=== PATIENT | female | born 1950 | race Caucasian/White ===

== ENCOUNTER 2017-06-05 21:18 | Observation (INO) | payer MEDICARE, BC ==
[2017-06-05 21:43] LABS: BASOPHILS 0.4 % (0.0-2.0); EOSINOPHILS 1.3 % (0.0-6.0); EOSINOPHILS# 0.1 X 10^3uL (0.0-0.4); HEMATOCRIT 45.6 % (36.0-48.0); HEMOGLOBIN 15.7 g/dL (12.0-16.0); LYMPHOCYTES 27.2 % (20.0-40.0); LYMPHOCYTES# 1.8 X 10^3uL (0.8-3.8); MEAN CELL VOLUME 94.4 fL (80.0-100.0); MEAN CORPUS. HGB CONCENTRATION 34.4 g/dL (32.0-36.0); MEAN CORPUSCULAR HEMOGLOBIN 32.5 pg (29.0-35.0); MEAN PLATELET VOLUME 8.1 fL (7.4-10.4); MONOCYTES 10.8 % (2.0-10.0); MONOCYTES# 0.7 X 10^3uL (0.2-1.0); NEUTROPHILS 60.3 % (54.0-75.0); NEUTROPHILS# 3.9 X 10^3uL (2.6-6.7); PLATELET COUNT 207 X 10^3uL (130-440); RED BLOOD COUNT 4.83 X 10^6uL (4.20-6.10); RED CELL DISTRIBUTION WIDTH 12.5 % (11.5-14.5); WHITE BLOOD COUNT 6.5 X 10^3uL (3.9-10.7)
[2017-06-05 21:53] LABS: BLOOD UREA NITROGEN 21 mg/dL (7-17); CALCIUM 9.1 mg/dL (8.4-10.2); CHLORIDE 108 mmol/L (98-107); EST GLOMERULAR FILTRATION RATE > 60 mL/min; GLUCOSE 104 mg/dL (70-100); POTASSIUM 3.2 mmol/L (3.5-5.1); SODIUM 142 mmol/L (137-145)
[2017-06-05 22:08] LABS: TROPONIN I < 0.012 ng/mL (0.00-0.034)
[2017-06-05] MEDS ORDERED: KETOROLAC TROMETHAMINE 30 MG/ML VIAL ONE (22:10)
[2017-06-05 22:21] LABS: INR 0.9
--- NOTE | 2017-06-05 23:19 | CT REPORT ---
HISTORY: Shortness of breath. Difficulty breathing. COMPARISON: None. TECHNIQUE: This examination was performed using automated exposure control, adjustment of mA or kV according to patient size, and/or use of iterative reconstruction technique. Axial CT imaging from the thoracic i nlet through the upper abdomen following administration of IV contrast during peak opacification of t he pulmonary arteries, multiplanar reformatted and 3-D images are evaluated. 100cc Isovue 300 contrast. FINDINGS: Segmental pulmonary emboli are present in the right lower lobe and there is a small amount of embolus in the right upper lobe. Central pulmonary arteries are not enlarged and there is no deviation of th e interventricular septum. The heart size is normal and there is no pericardial effusion. The thoraci c aorta shows no dissection. There are no enlarged thoracic lymph nodes. Minimal scarring involves the lung apices. In the right lower lobe (series 6, image 45), there is a 4 mm noncalcified nodule. In the right lower lobe (image 62), there is a 3 mm nodule. In the far infer ior right lower lobe (image 73), there is a 5 mm nodule. There is a 2 mm left upper lobe nodule (imag e 24). There is a 2 mm nodule more inferiorly in the left upper lobe which 38). A 3 mm subpleural nod ule involves the left lower lobe (image 40). A triangular-shaped nodule in the left lower lobe (image 53) measures 5 mm. A posterior left lower lobe nodule (image 55) measures 4 mm. Other small subpleur al nodular densities are present more inferiorly in the left lower lobe. There is no airspace infiltrate, consolidation, or pleural effusion. Imaged portions of the upper abd omen are unremarkable. No suspicious bony lesions or fractures are demonstrated. Subcentimeter left t hyroid nodules are noted. IMPRESSION: 1. Acute pulmonary embolism involving multiple segments in the right lower lobe and with a small amou nt of thrombus in the right upper lobe. No acute pulmonary artery enlargement and no pulmonary infarc tion. 2. Small bilateral pulmonary nodules. Based on updated Fleischner Society guidelines, no further imag ing follow-up is required in a patient at low risk for lung cancer. If the patient has significantly elevated risk, follow-up chest CT in one year could be performed. 3. Subcentimeter left thyroid nodules. These do not warrant further evaluation, based on size criteri a. Critical finding of acute pulmonary embolism was personally communicated to Dr. Crispin Barrera on 06/05/20 17 at 11:10 PM. Final Electronic Signature: This report was electronically signed by Mitchell Riley MD on 06/05/2017 11:16 PM. shey /
[2017-06-05] MEDS ORDERED: ACETAMINOPHEN 325 MG TABLET PO PRN (23:29)
[2017-06-05] MEDS ORDERED: HOME MEDICATION LIST NEEDED 1 EA EACH MISC ONE (23:29)
[2017-06-05] MEDS ORDERED: POTASSIUM EFF 25 MEQ TABLET ONE (23:57)
[2017-06-05] MEDS ORDERED: ENOXAPARIN SODIUM 60 MG/0.6 ML SYR SUBCUT ONE (23:58)
[2017-06-06] MEDS ORDERED: POTASSIUM CHLORIDE ER 20 MEQ TABLET PO ONE (00:11)
--- NOTE | 2017-06-06 00:18 | ER NURSING DOCUMENTATION ---
Nurse's Notes [facility] Name:Bob Arciniega Age:67 yrs Sex:Female :1950 Arrival Date:06/05/2017 Time:21:18 BedTrauma-C Private MD:Alyssa Seals Diagnosis:Pulmonary Embolism Presentation: 06/05 21:28 Presenting complaint: Patient states: C/O sharp right sided CP with SOB. Transition of [facility] care: Home. 21:28 Method Of Arrival: Walk In [facility] 21:28 Acuity: PAT 3 [facility] Triage Assessment: 21:33 General: Appears distressed, Behavior is anxious. Pain: Complains of pain in anterior [facility] aspect of right upper chest Pain radiates to back. EENT: No deficits noted. Neuro: Level of Consciousness is awake, alert, Oriented to person, place, time. Cardiovascular: Capillary refill < 3 seconds Rhythm is sinus rhythm Chest pain is described as mild, quality is stabbing. Respiratory: Airway is patent Breath sounds are clear. Respiratory: Reports shortness of breath at rest on exertion labored breathing Onset: The symptoms/episode began/occurred just prior to arrival, the patient has moderate shortness of breath. GI: No deficits noted. : No deficits noted. Derm: No deficits noted. Musculoskeletal: No deficits noted. Historical: - Allergies: Sulfa (Sulfonamide Antibiotics); Diprivan; Soy protein sensitivity; Aleve; - Home Meds: 1. Topamax 15 mg oral cpSP Unknown for Migraine Prevention 2. Protonix 40 mg oral TbEC once daily - Tetanus: < 10 years. - Ebola Screening: : No symptoms or risks identified at this time. . - Immunization history: Pneumococcal vaccine is up to date, Flu Vaccine < 1 year. - Social history: Smoking status: Patient states was never smoker of tobacco. Screenin:38 Infectious Disease Risk None. Abuse screen: Denies threats or abuse. Nutritional [facility] screening: No deficits noted. Assessment: 21:38 See Triage Assessment done by same RN. [facility] 21:38 Respiratory: Respiratory effort is even, unlabored. [facility] Vital Signs: 21:36 BP 126 / 66; Pulse 104; Resp 16; Temp 98.5; Pulse Ox 92% on R/A; Weight 44 kg; Height 5 [facility] ft. 4 in. (162.56 cm); Pain 6/10; 23:32 BP 122 / 77; Pulse 89; Resp 18; Pulse Ox 99% on 2 lpm NC; Pain 0/10; mk4 06/06 00:05 BP 122 / 76; Pulse 69; Resp 17; Pulse Ox 99% on 2 lpm NC; Pain 0/10; mk4 06/05 21:36 Body Mass Index 16.65 (44.00 kg, 162.56 cm) mk4 ED Course: 06/05 21:19 Patient arrived in ED. em2 21:19 Alyssa Seals MD is Private Physician. em2 21:20 Crispin Barrera MD is Attending Physician. rachel 21:28 Jennifer Pedroza is Primary Nurse. mk4 21:31 Patient moved to radiology. pm1 21:32 Triage completed. mk4 21:[address] Barrera notified. Allergy Band Placed Arm band placed on Bed in mk4 low position Call Light in Reach Gowned Side rails up x2. Family accompanied patient. EKG done per protocol. Performed by ED Staff. Labs ordered per protocol. Drawn by ED staff. X-ray done. 21:38 Inserted peripheral IV: 20 gauge in right antecubital area. mk4 21:38 Valuables Remains with patient. residential director on. Cardiac Monitoring On for Nurse mk4 Monitoring only. Pulse Ox - RN Monitoring Only NIBP On - RN Monitoring Only. Verbal reassurance given. Warm blanket given. 22:[address] pm1 22:[address]. pm1 23:35 Candido Juarez MD is Admitting Physician. rachel Administered Medications: 20:00 Drug: Toradol 30 mg; Route: IVP; Rate: 30 bolus; Infused Over: 3 mins; Site: right mk4 antecubital; 22:32 Follow up: Response: No adverse reaction; Pain is decreased mk4 23:55 CANCELLED (contains sugar unable to consume): Potassium Effervescent Tablet 25 mEq PO 4 once; dissolve in 4 ounces of water or juice 06/06 00:03 Drug: Potassium Chloride 20 mEq; Route: PO; mk4 00:06 Follow up: Response: No adverse reaction mk4 00:04 Drug: Lovenox 1 mg/kg; Route: Sub-Q; Site: abdomen; mk4 00:06 Follow up: Response: No adverse reaction mk4 Outcome: 07/16 23:36 Decision to Admit by Provider. rachel 06/06 00:06 Admitted to Med/surg accompanied by nurse. mk4 Condition: good Report given to Windy TRACEY 00:17 Patient left the ED. mk4 Signatures: Crispin Barrera MD MD jm McBride, Philisha pm1 Shital-annie, Leesa-annie em2 Jennifer Pedroza mk4
--- NOTE | 2017-06-06 00:18 | ER PHYSICIAN DOCUMENTATION ---
Physician Documentation [facility] Name:Bob Arciniega Age:67 yrs Sex:Female :1950 Arrival Date:06/05/2017 Time:21:18 BedTrauma-C Private MD:Alyssa Seals ED, John Disposition: 06/05/17 23:36 Admit ordered for Candido Juarez. Preliminary diagnosis is Pulmonary Embolism. - Bed requested for Medical/Surgical. - Condition is Good. - Problem is new. - Symptoms have improved. 23 HR OBS Yes HPI: 06/05 22:57 This 67 yrs old Female presents to ER via Walk In with complaints of jm Breathing Difficulty. 22:57 The patient has shortness of breath at rest. Onset: The symptom(s)/episode jm began/occurred 5 hour(s) ago. Duration: The symptoms are continuous. The patient's shortness of breath is aggravated by breathing . Associated signs and symptoms: Pertinent positives: chest pain. Severity of symptoms: in the emergency department the symptoms are unchanged. The patient has not experienced similar symptoms in the past. The patient has not recently seen a physician. Pt here for sudden onset of pleuritic CP, worse w deep breath. Pt does have mild SOB as well. . Historical: - Allergies: Sulfa (Sulfonamide Antibiotics); Diprivan; Soy protein sensitivity; Aleve; - Home Meds: 1. Topamax 15 mg oral cpSP Unknown for Migraine Prevention 2. Protonix 40 mg oral TbEC once daily - Tetanus: < 10 years. - Ebola Screening: : No symptoms or risks identified at this time. . - Immunization history: Pneumococcal vaccine is up to date, Flu Vaccine < 1 year. - Social history: Smoking status: Patient states was never smoker of tobacco. ROS: 22:59 Constitutional: Negative for fever. jm 22:59 ENT: Negative for rhinorrhea, sinus congestion, sinus pain, sore throat. 22:59 Neck: Negative for injury or acute deformity. 22:59 Cardiovascular: Positive for chest pain, Negative for edema, orthopnea, palpitations. 22:59 Respiratory: Positive for pleurisy, shortness of breath. 22:59 Abdomen/GI: Negative for nausea, vomiting. 22:59 MS/extremity: Negative for swelling, tenderness. 22:59 Skin: Negative for rash, swelling. 22:59 Neuro: Negative for dizziness. 22:59 Psych: Negative for anxiety, depression. Exam: 22:59 Constitutional: The patient appears alert, awake. 22:59 Eyes: Periorbital structures: appear normal, Conjunctiva: normal. 22:59 Neck: Thyroid: appears normal, Trachea: is midline with no obvious abnormalities. 22:59 Cardiovascular: Rate: tachycardic, Rhythm: regular. 22:59 Respiratory: Respirations: normal, Breath sounds: are normal. 22:59 Abdomen/GI: Bowel sounds: normal, Palpation: abdomen is soft and non-tender. 22:59 Musculoskeletal/extremity: DVT Exam: No signs of deep vein thrombosis. Calves: are non-tender, have equal circumference. 22:59 Skin: Appearance: Color: pink, no rash present. 22:59 Neuro: Mentation: is normal, Memory: is normal. 22:59 Psych: Behavior/mood is pleasant, cooperative, Affect is calm. Vital Signs: 21:36 BP 126 / 66; Pulse 104; Resp 16; Temp 98.5; Pulse Ox 92% on R/A; Weight 44 kg; Height 5 mk4 ft. 4 in. (162.56 cm); Pain 6/10; 23:32 BP 122 / 77; Pulse 89; Resp 18; Pulse Ox 99% on 2 lpm NC; Pain 0/10; mk4 06/06 00:05 BP 122 / 76; Pulse 69; Resp 17; Pulse Ox 99% on 2 lpm NC; Pain 0/10; mk4 06/05 21:36 Body Mass Index 16.65 (44.00 kg, 162.56 cm) [facility] MDM: 06/05 21:20 Patient medically screened. 23:02 Differential diagnosis: Psychogenic pulmonary edema, Pulmonary Embolism pleuracy. 23:33 Data reviewed: vital signs, nurses notes, old medical records, lab test result(s), EKG, radiologic studies, and as a result, I will admit patient. Test interpretation: by ED physician or midlevel provider: plain radiologic studies, ECG. Counseling: I had a detailed discussion with the patient and/or guardian regarding: the historical points, exam findings, and any diagnostic results supporting the discharge/admit diagnosis, lab results, radiology results, the need for further work-up and treatment in the hospital. ECG:. Medication response: Toradol partially relieved the patient's pain. Physician consultation: Candido Juarez MD regarding admission, and will see patient later today. ED course: Pt w PE as noted in report. VSS. Pt given lovenox and K. Dr. Juarez will see in AM as she is very stable. . 06/05 21:51 Order name: CBC AUTO DIF, MDIF/RMOR IF IND; Complete Time: 22:14 [facility] 06/05 22:00 Order name: BASIC METABOLIC PANEL; Complete Time: 22:14 [facility] 06/05 22:00 Order name: MAGNESIUM; Complete Time: 22:14 [facility] 06/05 22:08 Order name: DDIMER; Complete Time: 22:13 [facility] 06/05 22:09 Order name: TROPONIN I; Complete Time: 22:14 [facility] 06/05 22:36 Order name: PROTIME/INR; Complete Time: 23:25 [facility] 06/06 13:33 Order name: CBC AUTO DIF, MDIF/RMOR IF IND [facility] 06/06 13:37 Order name: UA W/ MICRO -CULTURE IF IND [facility] 06/06 13:51 Order name: COMPREHENSIVE METABOLIC PANEL [facility] 06/06 13:51 Order name: THYROID STIMULATING HORMONE [facility] 06/06 13:51 Order name: FREE T4 [facility] 06/06 13:51 Order name: FREE T3 [facility] 06/06 15:34 Order name: URINE SODIUM,RANDOM [facility] 06/07 09:46 Order name: BASIC METABOLIC PANEL [facility] 06/07 09:46 Order name: MAGNESIUM [facility] 06/07 11:02 Order name: PARTIAL THROMBOPLASTIN TIME [facility] 06/05 23:21 Order name: CAT SCAN; CHEST ANGIO [id number]; Complete Time: 23:25 [facility] 06/06 11:08 Order name: CAT SCAN; HEAD W/O CON [id number] [facility] 06/07 07:16 Order name: CXR 2V [id number] [facility] 06/05 21:29 Order name: 12-lead EKG; Complete Time: 21:52 06/05 21:29 Order name: Iv Saline Lock; Complete Time: 21:52 06/05 21:29 Order name: Place Patient On Monitor; Complete Time: 21:52 06/05 21:29 Order name: Pulse Ox Continuous; Complete Time: 21:52 06/05 22:31 Order name: Oxygen; Complete Time: 22:32 mk4 EC:33 Rhythm is regular. QRS [place] is Normal. [place] interval is normal. QRS interval is normal. QT interval is normal. No Q waves. T waves are Normal. No ST changes noted. Dispensed Medications: 20:00 Drug: Toradol 30 mg; Route: IVP; Rate: 30 bolus; Infused Over: 3 mins; Site: right mk4 antecubital; 22:32 Follow up: Response: No adverse reaction; Pain is decreased mk4 23:55 CANCELLED (contains sugar unable to consume): Potassium Effervescent Tablet 25 mEq PO mk4 once; dissolve in 4 ounces of water or juice 06/06 00:03 Drug: Potassium Chloride 20 mEq; Route: PO; mk4 00:06 Follow up: Response: No adverse reaction mk4 00:04 Drug: Lovenox 1 mg/kg; Route: Sub-Q; Site: abdomen; mk4 00:06 Follow up: Response: No adverse reaction 4 Signatures: Crispin Barrera MD MD jm King, Melody 4
[2017-06-06] MEDS: POTASSIUM CHLORIDE/NS 20 MEQ/1,000 ML BAG IV SCH ×2 (02:02→17:07)
[2017-06-06] MEDS: MORPHINE SULFATE 2 MG/ML SYR IV PRN ×2 (03:25→10:45)
--- NOTE | 2017-06-06 09:51 | HISTORY AND PHYSICAL ---
PROVIDER: Date of Admission: 06/06/17 Admitting Provider: BREANN RIZZO MD Attending Provider: BREANN RIZZO MD Primary Care Provider: CHIEF COMPLAINT: Chest pain on the right. HISTORY OF PRESENT ILLNESS: 67-year-old female generally followed at [facility]. In February, her compounded hormone therapy was adjusted with increased estrogen and progesterone and also the addition of testosterone. Over the last few weeks, she has had increasing headache posteriorly which generally wakes her from sleep about an hour and a half after going to sleep. Other than that, she has been in relatively stable health. On Tuesday (7 days ago), she had some discomfort while seeing her chiropractor in her right medial arm. This abated and she did not notice it further during the week. However, 3 days ago, she was on a 10 mile hike and experienced chest pain which resolved spontaneously. Yesterday, at about 4 in the afternoon, she had a sudden onset of sharp chest pain in the right chest, primarily upper, both anteriorly and posteriorly. As this did not resolve, she came into the emergency department at about 9:00 in the evening. Labs were relatively unremarkable. Chest x-ray was negative. She underwent a CT scan of the chest, and this showed 2 segmental pulmonary emboli in the right lower lobe and one smaller area of pulmonary embolus in the right upper lobe. No evidence of pulmonary infarct. No enlargement of the pulmonary arteries. She was oxygenating well but having moderate pain. She was started on Lovenox. She had previously been given a dose of Toradol which helped with the pain. Ultimately, she was admitted for further evaluation and treatment. She has not had any travel since early March. No recent surgeries or injuries. As above, she does take compounded hormone therapy from a DO in [place]. This was recently increased and testosterone was added in February. Her brother had a pulmonary embolus about 4 years ago without clear precipitant. Per her recollection, he had no genetic predisposition to clotting. Her mother had a blood clot after hip surgery many years ago. In terms of other issues, she has lost weight over the last 3 years, and she has attributed this to multiple food sensitivities. She now has a very limited diet. She has been through mammogram as recently as this spring, and this was negative. She has had a colonoscopy within the last year, and this was negative. She is a non-smoker, although she did have passive exposure as a child. PAST MEDICAL HISTORY: Migraine headache Unintended weight loss over the last year Estrogen deficiency Cervical spine degenerative disc disease and degenerative joint disease Seasonal allergies Intolerances to multiple foods SOCIAL HISTORY: No tobacco. No alcohol. No recreational/illicit drugs. . [employer] major. Previously taught primary education. Worked in [employer]. Now retired. FAMILY HISTORY: Pulmonary emboli in mother after surgery and brother without clear precipitant. Migraine headaches and multiple female relatives. No early coronary artery disease. Lung cancer in her father who was a smoker. Diabetes in father and maternal aunt. MEDICATIONS: Mi 180 mg p.o. daily. Compounded hormones with unclear components but apparently with estrogen, progesterone, and testosterone. Taken orally. Topamax 50 mg p.o. twice daily. Vitamin D. Potassium. Calcium. See pharmacy medicine reconciliation for other herbals and supplements. ALLERGIES: History of burning sensation with NSAIDs. Propofol with unknown reaction. Intolerance to products with soy. Sulfa with unknown reaction. REVIEW OF SYSTEMS: Pertinent positives and negatives are as above. She denies any lightheadedness , presyncope, syncope. Headaches as above. No recent URI. No cough or hemoptysis. No shortness of breath or wheezing. No abdominal pain, nausea, vomiting. Diarrhea over the last couple of years until she eliminated xantham gum. Now, no diarrhea. No dysuria or hematuria. No focal changes in strength or sensation. No lower extremity pain or swelling. Some pain in her right medial upper arm over the last week as above. VITAL SIGNS: Temperature 36.1. Blood pressure 105/72. Pulse 60. Respirations 16. 100% on 2 L. PHYSICAL EXAMINATION: General: Thin female. No apparent distress. Breathing easily. No use of accessory muscles. Alert and interactive and appropriate. HEENT: Normocephalic atraumatic. Sinuses nontender. Pupils equal, round, and reactive to light. Extraocular muscles intact with full range of motion. Oropharynx clear. Neck: Supple without lymphadenopathy or masses. Chest: Decreased breath sounds throughout. I do not hear any rales or wheezes or rhonchi. No change in tactile fremitus. Chest wall is nontender. Cardiac: Regular rate and rhythm with a normal S1 and S2. I do not hear a murmur today. No S3 or S4. Abdomen: Positive bowel sounds. Soft, nontender, nondistended. No hepato-or splenomegaly. Back: No CVA or spinous process tenderness. Extremities: Lower extremities without tenderness. Negative Homans. No cords. Right upper extremity with possible cord involving the medial aspect. Lymph: No cervical or supraclavicular lymphadenopathy. Skin: No rashes. Neuro: Alert and oriented 4. Facial expressions symmetric. Moving all 4 extremities with good strength. Light touch sensation is intact throughout. LABORATORY: CBC is normal with white count of 6.5 and hematocrit of 45.6 and platelets of 207. INR is normal. D-dimer elevated at 461. Chemistry panel showing sodium of 142 potassium 3.2 BUN 21 creatinine 0.9. Glucose 104. Calcium and magnesium normal. Troponin negative. IMAGING: CT angiogram of the chest showing multiple pulmonary emboli as described above. Incidentally noted were multiple small pulmonary nodules. Also incidentally noted were multiple left-sided thyroid nodules. Assessment and Plan - Date of Encounter Date of Encounter: 06/06/17 (1) Pulmonary emboli Status: Acute Qualifiers: Pulmonary embolism type: other Chronicity: acute Acute cor pulmonale presence: without acute cor pulmonale Qualified Code(s): I26.99 - Other pulmonary embolism without acute cor pulmonale Assessment and plan: Acute pulmonary emboli times multiple. Most likely precipitant is hormone therapy. No recent immobilization, trauma, surgery. With strong family history , will check for other predisposing factors with labs. No evidence of cor pulmonale. Oxygenating well. Currently on Lovenox. Continue IV fluid support. Continue Lovenox for now. Reviewed options for treatment with either warfarin or rivaroxaban. She will make a decision later today. May be appropriate for discharge to home later today or tomorrow. Clot likely originated in right upper extremity. No indication for ultrasounding this region as it would not affect our therapy. Of note, she is up-to-date on cancer screening. However, she has had weight loss over the last few years without clear explanation. See discussions below. Current Visit: Yes (2) Pulmonary nodule less than 6 cm determined by computed tomography of lung Status: Chronic Assessment and plan: Not previously diagnosed. She does have a passive smoke exposure from when she was a child. None are large enough to require biopsy at this time. She should have repeat CT scan in 6-12 months. Current Visit: Yes (3) Thyroid nodule Status: Chronic Assessment and plan: Newly identified. Considering weight loss, will check thyroid labs for evidence of overactivity. Will likely need to characterize further with ultrasound in the outpatient setting. Current Visit: Yes (4) Headache Status: Chronic Qualifiers: Headache type: new daily persistent Qualified Code(s): G44.52 - New daily persistent headache (NDPH) Assessment and plan: Underlying migraine. However, now with a change in headache pattern over the last few weeks without clear explanation. May be related to hormone change. Differential includes ENTERTAINMENT MANAGER mass, compromised circulation, nocturnal hypoxemia. She does have underlying cervical spine disease but no evidence of root impingement by recent MRI per the patient. Anticoagulation as above. Head CT without contrast. Carotid and vertebral artery ultrasound. May need CT angiogram of the neck once she is further out from her last contrast. Will likely need nocturnal oximetry study in the outpatient setting. We will be stopping hormone therapy due to pulmonary emboli. Current Visit: Yes (5) Weight loss Status: Chronic Assessment and plan: Etiology unclear. She has had mammogram and colonoscopy. Chest CT showing small non-concerning pulmonary nodules which will need to be followed. May need to consider further evaluation with pelvic exam, abdomen and pelvis CT. Checking thyroid studies as above. Follow clinically for other evidence of endocrine abnormality. Current Visit: Yes (6) Excessive thirst Status: Chronic Assessment and plan: In the setting of the above. Further blood work and urine testing as above. Will check a urine sodium level as well. Current Visit: Yes (7) Hypoestrogenism Status: Acute Assessment and plan: Previously on compounded oral hormone therapy with estrogen, progesterone, testosterone. Now, with pulmonary emboli. She will need to stop hormone therapy, and she is very concerned about this. She has had significant improvement in sleep with her current therapy. Current Visit: Yes (8) DVT prophylaxis Status: Acute Assessment and plan: Fully anticoagulated as above. Current Visit: Yes - Time Spent With Patient Total time spent with greater than 50% in coordination of care (as documented) at patient's floor/unit and/or counseling patient: Greater than 35 minutes Estimated anticipated discharge: Later today or tomorrow.
--- NOTE | 2017-06-06 11:06 | CT REPORT ---
History: Recent change in headache. Comparison: None. Technique: Axial CT from the skull base through the vertex without contrast. This examination was performed usin g automated exposure control, adjustment of mA or kV according to patient size, and/or use of iterati ve reconstruction technique. Findings: The morphology and attenuation of the brain are within normal limits for age. There is no evidence of an intra or extra-axial mass, hemorrhage, or fluid collection. No evidence of acute infarct. The obed tricles are normal in size and position. The regional osseous and soft tissue structures are unremark able. The orbits and globes appear normal. The paranasal sinuses are generally clear. Impression: Negative head CT. Findings called to the patient's nurse Vira at the time of dictation. Final Electronic Signature: This report was electronically signed by Los Ruvalcaba MD on 06/06/2017 11:04 AM. [email or web address] /
[2017-06-06] MEDS: [UNRECOGNIZED DRUG - REMARK] PO SCH (11:47)
[2017-06-06] MEDS: TOPAMAX 50 MG PO SCH ×2 (11:47→21:58)
[2017-06-06] MEDS: ENOXAPARIN SODIUM 60 MG/0.6 ML SYR SUBCUT SCH ×2 (11:50→22:34)
[2017-06-06 13:07] LABS: A/G RATIO 1.2; ALBUMIN 3.7 g/dL (3.5-5.0); ALKALINE PHOSPHATASE 55 U/L (38-126); ALT 32 U/L (9-52); AST 19 U/L (14-36); BILIRUBIN, TOTAL 0.5 mg/dL (0.2-1.3); BLOOD UREA NITROGEN 14 mg/dL (7-17); CALCIUM 8.6 mg/dL (8.4-10.2); CHLORIDE 109 mmol/L (98-107); EST GLOMERULAR FILTRATION RATE > 60 mL/min; GLUCOSE 76 mg/dL (70-100); POTASSIUM 3.8 mmol/L (3.5-5.1); SODIUM 143 mmol/L (137-145); TOTAL PROTEIN 6.8 g/dL (6.3-8.2)
[2017-06-06 13:24] LABS: FREE T4 1.42 ng/dL (0.78-2.19)
[2017-06-06 13:31] LABS: HEMATOCRIT 43.8 % (36.0-48.0); HEMOGLOBIN 14.8 g/dL (12.0-16.0); MEAN CORPUS. HGB CONCENTRATION 33.8 g/dL (32.0-36.0); MEAN CORPUSCULAR HEMOGLOBIN 32.7 pg (29.0-35.0); RED BLOOD COUNT 4.53 X 10^6uL (4.20-6.10); RED CELL DISTRIBUTION WIDTH 12.5 % (11.5-14.5); WHITE BLOOD COUNT 4.1 X 10^3uL (3.9-10.7)
[2017-06-06 13:32] LABS: BASOPHILS 0.6 % (0.0-2.0); EOSINOPHILS 2.4 % (0.0-6.0); EOSINOPHILS# 0.1 X 10^3uL (0.0-0.4); LYMPHOCYTES 33.3 % (20.0-40.0); LYMPHOCYTES# 1.4 X 10^3uL (0.8-3.8); MEAN PLATELET VOLUME 8.2 fL (7.4-10.4); MONOCYTES 10.8 % (2.0-10.0); MONOCYTES# 0.4 X 10^3uL (0.2-1.0); NEUTROPHILS 52.9 % (54.0-75.0); NEUTROPHILS# 2.2 X 10^3uL (2.6-6.7); PLATELET COUNT 204 X 10^3uL (130-440)
[2017-06-06 13:36] LABS: URINE APPEARANCE CLEAR; URINE BACTERIA NONE SEEN (<10/hpf); URINE BILIRUBIN NEGATIVE (NEGATIVE); URINE BLOOD NEGATIVE (NEGATIVE); URINE COLOR YELLOW; URINE GLUCOSE NORMAL (NEGATIVE); URINE KETONE NEGATIVE (NEGATIVE); URINE LEUKOCYTE ESTERASE NEGATIVE (NEGATIVE); URINE MUCUS NONE SEEN (Up to 25%); URINE NITRITE NEGATIVE (NEGATIVE); URINE PROTEIN NEGATIVE (NEG - TRACE); URINE RBC NONE SEEN (0-5/hpf); URINE SPECIFIC GRAVITY 1.015 (0.001-1.035); URINE SQUAMOUS EPITHELIAL CELL NONE SEEN (<= 15/hpf); URINE UROBILINOGEN 0.2mg/dL (Normal) (NEG-1mg/dL); URINE WBC NONE SEEN (0-4/hpf)
[2017-06-06 13:38] LABS: THYROID STIMULATING HORMONE 1.81 uIU/mL (0.47-4.68)
[2017-06-06] MEDS: PROTONIX 20 MG PO SCH (17:02)
[2017-06-06] MEDS ORDERED: UBIQUINOL 100 MG PO SCH (21:00)
[2017-06-06] MEDS: POTASSIUM CITRATE PO SCH (21:56)
[2017-06-06] MEDS: [UNRECOGNIZED DRUG - OTHER] PO SCH (21:56)
[2017-06-06] MEDS: [UNRECOGNIZED DRUG - MIXTURE] PO SCH (21:56)
[2017-06-07] MEDS: MORPHINE SULFATE 2 MG/ML SYR IV PRN (01:50)
[2017-06-07] MEDS ORDERED: RELPAX 40 MG PO PRN (02:46)
[2017-06-07] MEDS: PROTONIX 20 MG PO SCH (06:12)
[2017-06-07 06:55] VITALS: TEMP 97.5
--- NOTE | 2017-06-07 07:14 | RADIOLOGY REPORT ---
Two views of the chest, without prior films for comparison, demonstrate the heart, vessels and lungs to be unremarkable. No infiltrate, fluid or pneumothorax is seen. IMPRESSION: Unremarkable two views of the chest. Please see CT scan report of the same date. MTDD
[2017-06-07] MEDS ORDERED: VITAMIN B12 5000 MCG PO SCH (09:00)
[2017-06-07] MEDS ORDERED: VITAMIN D3 PO SCH (09:00)
--- NOTE | 2017-06-07 09:07 | DC SUMMARY: IM Note ---
Discharge Summary: IM/Peds Provider: Date of Admission: 06/06/17 Admitting Provider: BREANN RZIZO MD Attending Provider: BREANN RIZZO MD Discharging Provider: BREANN RIZZO MD Primary Care Provider: Discharge Date: 06/07/17 Consults: 06/06/17 09:44 Pharmacy Consult [CONS] Routine Reason: Please discuss med options for PE (warfarin vs. rivaroxiban). Hx of sensativities to mult med fillers. Thanks. - Diagnosis (1) Pulmonary emboli Status: Acute Qualifiers: Pulmonary embolism type: other Chronicity: acute Acute cor pulmonale presence: without acute cor pulmonale Qualified Code(s): I26.99 - Other pulmonary embolism without acute cor pulmonale (2) Pulmonary nodule less than 6 cm determined by computed tomography of lung Status: Chronic (3) Thyroid nodule Status: Chronic (4) Headache Status: Chronic Qualifiers: Headache type: new daily persistent Qualified Code(s): G44.52 - New daily persistent headache (NDPH) (5) Weight loss Status: Chronic (6) Excessive thirst Status: Chronic (7) Hypoestrogenism Status: Acute (8) DVT prophylaxis Status: Acute Hospital Course: Complicated situation. Admitted for multiple pulmonary emboli right side. Possibly precipitated by increase in hormone therapy a few months previous to admission. Hemodynamically stable. Oxygenating well during the day but with desaturations at night. No evidence of right-sided heart failure on examination. Echocardiogram confirming this. Diagnosis made with CT angiogram. Hypercoagulability workup initiated with labs pending at the time of this dictation. Tolerated Lovenox well. Will be discharged home on such and transitioned to Pradaxa after 5 days of Lovenox. Risks versus benefits were described in detail, and she has reviewed these medications with pharmacy as well considering concerns about multiple medication intolerances and sensitivities. Nighttime oxygen prescribed but will also arrange for pulmonology consultation with concern for possible sleep apnea considering her history. She is ambulating and tolerating oral intake well. No evidence of bleeding. Remains hemodynamically stable at the time of discharge. With regard to other issues, which chronic daily headache which has worsened over the last few months, CT scan of the brain was done. This was negative. With concern for possible vascular insufficiency, carotid ultrasound was done showing patent carotid and vertebral arteries. May need to consider CT angiogram in the outpatient setting to confirm. She did have nocturnal hypoxemia into the 70s. This does bring up the question of sleep apnea in spite of her body habitus. Will discharge on nocturnal oxygen and arrange for pulmonology consultation. Will likely need formal sleep study.Hormone therapy has been discontinued, and she is concerned about breakthrough symptomatology. Will reevaluate with her early next week and may need to consider addition of Effexor or Neurontin for symptom management. With regard to her migraines, she will continue Topamax and can use Relpax as needed. She can use Tylenol, and she has Tylenol 3 for more severe pain at home. She will continue with her current dietary restrictions, although we may discuss further evaluation with allergy/immunology in the outpatient setting. With regard to excessive thirst and frequent urination and hypokalemia, she was given gentle IV fluid resuscitation. Urine sodium level was normal as was her serum sodium level. Will likely need further evaluation in the outpatient setting with regard to this as well. Finally, incidentally noted on her chest CT for pulmonary nodules which will need to be followed in 6-12 months due to passive smoke exposure and also thyroid nodules. Her thyroid studies were normal, but he should be further characterized with a formal thyroid ultrasound. She has indicated that she would like to follow with me in the outpatient setting for now. Will have a visit early next week to continue workup and management. - Time Spent with Patient Total time spent providing and/or coordinating discharge services: Discharge - Patient/Caregiver Discharge Instructions Activity Level: As tolerated. Gradually increase activity. Avoid impact activities due to bleeding risk. Diet: Regular as tolerated. Follow your usual restrictions. Additional Instructions: Oxygen at night at 2 L/min by nasal cannula. Office visit with me next Tuesday morning. Please show up at 9:00 for check in at the front end software developer, nursing check in. I will see you at 9:30. Follow up: BREANN RIZZO MD [ACTIVE (Staff Physician)] - 06/13/17 9:00 am Overall discharge status: patient is progressing back to baseline Print Language: CENTRAL AFRICAN Home Medications: Dabigatran Etexilate Mesylate [Pradaxa] 150 mg PO BID #60 cap Potassium Bicarbonate/Cit AC [Potassium 25 Meq Tablet Eff] 25 meq PO DAILY #30 tablet.eff Disposition: HOME, SELF-CARE Discharge Summary Data - Medication History Medication History: Home Medications Butterbur Root Extract [Petadolex 75] 75 mg PO DAILY 06/06/17 Cholecalciferol [Vitamin D*] 2,000 unit PO EVERY MORNING 06/06/17 Cyanocobalamin [VITAMIN B-12*] 5,000 mcg PO EVERY MORNING 06/06/17 Fexofenadine HCl [Mi Allergy] 180 mg PO DAILY 06/06/17 Garlic 1 each PO BID 06/06/17 Herbal Drugs [Herbal Medications] 1 tab PO BID 06/06/17 Pantoprazole [Pantoprazole Sodium*] 20 mg PO DAILY 06/06/17 Prasterone (Dhea) [Dhea] 50 mg PO DAILY 06/06/17 Topiramate [Topiramate*] 50 mg PO BID 06/06/17 Ubiquinol [Active-Q] 100 mg PO HS 06/06/17 Acetaminophen [Tylenol*] 650 mg PO Q6H PRN 06/07/17 Dabigatran Etexilate Mesylate [Pradaxa] 150 mg PO BID #60 cap 06/07/17 Enoxaparin Sodium [LOVENOX 60mg/0.6mL*] 45 mg SUBCUT Q12H syr 06/07/17 Potassium Bicarbonate/Cit AC [Potassium 25 Meq Tablet Eff] 25 meq PO DAILY #30 tablet.eff 06/07/17 Relpax 40 mg PO DAILY PRN #1 tab 06/07/17 Inpatient Medications 06/06/17 03:12 Morphine Sulfate 1 - 2 mg IV Q2H PRN 06/06/17 09:00 Mi Allergy 180 mg PO DAILY Topamax 50 mg PO BID 06/06/17 10:00 Enoxaparin Sodium [Lovenox] 45 mg SUBCUT Q12H 06/06/17 17:00 Protonix 20 mg PO BEFORE BRKFST/DINN 06/06/17 21:00 Non-Formulary Medication 1 PO BID Non-Formulary Medication 1 PO BID Non-Formulary Medication 1 PO HS 06/07/17 02:46 Relpax 40 mg PO DAILY PRN 06/07/17 09:00 Non-Formulary Medication 1 PO DAILY Non-Formulary Medication 1 PO DAILY Procedures and tests throughout hospitalization: Completed Lab Orders 06/06/17 09:37 ua /c m [UA W/ MICRO -CULTURE IF IND] [URINE] Routine 06/06/17 09:38 URINE SODIUM,RANDOM [CHEM] Routine 06/06/17 12:40 CBC AUTO DIF, MDIF/RMOR IF IND [HEM] Stat FREE T3 [CHEM] Stat FREE T4 [CHEM] Stat THYROID STIMULATING HORMONE [CHEM] Routine cmp [COMPREHENSIVE METABOLIC PANEL] [CHEM] Stat Completed Imaging Orders 06/06/17 09:42 ct [CAT SCAN; HEAD W/O CON 07427] [CT] Stat Pending Orders 06/06/17 03:12 Morphine Sulfate 1 - 2 mg IV Q2H PRN 06/06/17 09:00 Mi Allergy 180 mg PO DAILY Topamax 50 mg PO BID 06/06/17 09:41 Carotid Duplex, Bilateral [CARDIO] Urgent Echo [Echocardiogram] [CARDIO] Urgent 06/06/17 09:44 Pharmacy Consult [CONS] Routine 06/06/17 10:00 Enoxaparin Sodium [Lovenox] 45 mg SUBCUT Q12H 06/06/17 12:40 ANTITHROMBIN 3 ACTIVITY [SEND] Routine ANTITHROMBIN 3 ANTIGEN [SEND] Routine FACTOR V LEIDEN R506Q MUTATION [SEND] Routine PROTEIN C ACTIVITY [SEND] Routine PROTEIN C ANTIGEN [SEND] Routine PROTEIN S ACTIVITY [SEND] Routine PROTEIN S ANTIGEN [SEND] Routine PROTHROMBIN [id number] MUTATION [SEND] Routine 06/06/17 17:00 Protonix 20 mg PO BEFORE BRKFST/DINN 06/06/17 21:00 Non-Formulary Medication 1 PO BID Non-Formulary Medication 1 PO BID Non-Formulary Medication 1 PO HS 06/07/17 02:46 Relpax 40 mg PO DAILY PRN 06/07/17 08:03 Teach: Lovenox Education . 06/07/17 08:46 BMP [BASIC METABOLIC PANEL] [CHEM] Urgent 06/07/17 08:47 Cardiolipin IgM [PHOSPHOLIPID/CARDIOLIPIN IGM] [SEND] Routine PHOSPHOLIPID/CARDIOLIPIN IGG [SEND] Routine RPR [SER] Routine mag [MAGNESIUM] [CHEM] Urgent 06/07/17 08:48 ANTI NUCLEAR ANTIBODY [SEND] Routine ptt [PARTIAL THROMBOPLASTIN TIME] [HEM] Routine 06/07/17 09:00 Non-Formulary Medication 1 PO DAILY Non-Formulary Medication 1 PO DAILY Labs on day of discharge: Labs from last 24 hours 0706/06/17 06/06/17 12:40 12:40 12:40 WBC 4.1 RBC 4.53 Hgb 14.8 Hct 43.8 MCV 97.0 MCH 32.7 MCHC 33.8 RDW 12.5 Plt Count 204 MPV 8.2 Neutrophils % 52.9 L Lymphocytes % 33.3 Eosinophils % 2.4 Basophils % 0.6 Neutrophils # 2.2 L Lymphocytes # 1.4 Monocytes 10.8 H Monocytes # 0.4 Eosinophils # 0.1 Basophils # 0.0 Protein C Antigen Pending Protein C Activity Pending Protein S Activity Pending Protein S Antigen Pending Antithrombin III Ag Pending Antithrombin III Activ Pending Factor V Leiden Mutat Pending Sodium 143 Potassium 3.8 Chloride 109 H Carbon Dioxide 23 BUN 14 Creatinine 0.7 GFR Calculation > 60 Glucose 76 Calcium 8.6 Total Bilirubin 0.5 AST 19 ALT 32 Alkaline Phosphatase 55 Total Protein 6.8 Albumin 3.7 Albumin/Globulin Ratio 1.2 TSH 1.81 Free T4 1.42 Free T3 pg/mL 4.25 Urine Color Urine Appearance Urine pH Ur Specific Stuart Urine Protein Urine Ketones Urine Blood Urine Nitrate Urine Bilirubin Urine Urobilinogen Ur Leukocyte Esterase Urine RBC Urine WBC Ur Squamous Epith Cells Urine Bacteria Urine Mucus Urine Sodium Urine Glucose Prothrombin [id number] Mut Pending 06/06/17 06/06/17 09:38 09:37 WBC RBC Hgb Hct MCV MCH MCHC RDW Plt Count MPV Neutrophils % Lymphocytes % Eosinophils % Basophils % Neutrophils # Lymphocytes # Monocytes Monocytes # Eosinophils # Basophils # Protein C Antigen Protein C Activity Protein S Activity Protein S Antigen Antithrombin III Ag Antithrombin III Activ Factor V Leiden Mutat Sodium Potassium Chloride Carbon Dioxide BUN Creatinine GFR Calculation Glucose Calcium Total Bilirubin AST ALT Alkaline Phosphatase Total Protein Albumin Albumin/Globulin Ratio TSH Free T4 Free T3 pg/mL Urine Color Yellow Urine Appearance Clear Urine pH 7.0 Ur Specific Stuart 1.015 Urine Protein Negative Urine Ketones Negative Urine Blood Negative Urine Nitrate Negative Urine Bilirubin Negative Urine Urobilinogen 0.2mg/dl (normal) Ur Leukocyte Esterase Negative Urine RBC None seen Urine WBC None seen Ur Squamous Epith Cells None seen Urine Bacteria None seen Urine Mucus None seen Urine Sodium 62 Urine Glucose Normal Prothrombin [id number] Mut IM: Discharge Physical Exam - I&O/Vital Signs I&O: Intake & Output 06/06/17 06/07/17 06/07/17 21:59 05:59 13:59 Intake Total 1350 2660 Output Total 1950 2600 Balance -600 60 Intake: IV 650 910 Right Antecubital 650 910 Oral 700 1750 Output: Urine 1950 2600 Other: Urine Appearance Clear Clear Urine Color Pale Yellow Voiding Method Toilet Toilet Vital Signs: Last Vital Signs Temp 36.4 C L 06/07/17 06:55 Pulse 80 06/07/17 06:55 Resp 23 06/07/17 06:55 BP 111/61 06/07/17 06:55 Pulse Ox 96 06/07/17 06:55 Oxygen Flow Rate 2 Oxygen Delivery Method Room Air - Constitutional General appearance: Present: thin - Head Head exam: Present: atraumatic - Eye Eye exam: Present: EOMI - Neck Neck exam: Present: full ROM - Respiratory Respiratory exam: Present: clear - Cardiovascular Cardiovascular exam: Present: RRR. Absent: S3, S4 - GI/Abdominal GI/Abdominal exam: Present: normal bowel sounds. Absent: organomegaly, tenderness - Extremities Exam Extremities exam: Present: other (Mild tenderness in right medial upper arm.). Absent: calf tenderness, Calderon's Sign - Neurological Exam Neurological exam: Present: oriented X3. Absent: motor sensory deficit - Psychiatric Psychiatric exam: Absent: anxious, depressed - Allied Health Notes Allied health notes reviewed: nursing
[2017-06-07 09:45] LABS: BLOOD UREA NITROGEN 15 mg/dL (7-17); CALCIUM 8.9 mg/dL (8.4-10.2); CHLORIDE 109 mmol/L (98-107); EST GLOMERULAR FILTRATION RATE > 60 mL/min; GLUCOSE 88 mg/dL (70-100); MAGNESIUM 2.1 mg/dL (1.6-2.3); POTASSIUM 3.8 mmol/L (3.5-5.1); SODIUM 142 mmol/L (137-145)
[2017-06-07] MEDS: ENOXAPARIN SODIUM 60 MG/0.6 ML SYR SUBCUT SCH (10:08)
[2017-06-07] MEDS: [UNRECOGNIZED DRUG - OTHER] PO SCH (10:10)
[2017-06-07] MEDS: POTASSIUM CITRATE PO SCH (10:10)
[2017-06-07] MEDS: [UNRECOGNIZED DRUG - REMARK] PO SCH (10:10)
[2017-06-07] MEDS: [UNRECOGNIZED DRUG - MIXTURE] PO SCH (10:10)
[2017-06-07] MEDS: TOPAMAX 50 MG PO SCH (10:11)
[2017-06-07 11:01] LABS: PARTIAL THROMBOPLASTIN TIME 29 sec (24-38)
[2017-06-07 11:28] VITALS: BP 100/59; PULSE 77; RESP 24; O2SAT 96
[2017-06-08 13:50] LABS: ANTITHROMBIN 3 ACTIVITY SEE COMMENTS; ANTITHROMBIN 3 ANTIGEN SEE COMMENTS; PROTEIN C ACTIVITY SEE COMMENTS; PROTEIN C ANTIGEN SEE COMMENTS; PROTEIN S ACTIVITY SEE COMMENTS; PROTEIN S ANTIGEN SEE COMMENTS
[2017-06-09 15:51] LABS: FACTOR V LEIDEN R506Q MUTATION SEE COMMENTS; PROTHROMBIN G20210A MUTATION SEE COMMENTS
[2017-06-09 19:46] LABS: PHOSPHOLIPID/CARDIOLIPIN IGG SEE COMMENTS; PHOSPHOLIPID/CARDIOLIPIN IGM SEE COMMENTS
== END 2017-06-07 09:10 | disposition home or self-care (01) ==
LOC: ER 21:18 → IN 06-06 00:22
PROVIDERS: ADMIT Internal Medicine; ATTEND Internal Medicine
DX: I26.99 Other pulmonary embolism without acute cor pulmonale (principal); G43.809 Other migraine, not intractable, without status migrainosus; M50.30 Other cervical disc degeneration, unspecified cervical region; J30.2 Other seasonal allergic rhinitis; R91.1 Solitary pulmonary nodule; E04.1 Nontoxic single thyroid nodule; R63.4 Abnormal weight loss; R63.1 Polydipsia; Z78.0 Asymptomatic menopausal state; Z79.899 Other long term (current) drug therapy
CPT/HCPCS: 36415; 70450; 71020; 71275; 80048; 80053; 81001; 83735; 84300; 84439; 84443; 84481; 84484; 85025; 85301; 85302; 85303; 85306; 85379; 85610; 85730; 86039; 86147; 86592; 93005; 93010; 93041; 93306; 93880; 96361; 96372; 96374; 96375; 96376; 99217; 99285; G0378; J1650; J1885; J2270; J3480

== ENCOUNTER 2017-06-11 08:43 | Emergency (ER) | payer MEDICARE, BC ==
--- NOTE | 2017-06-11 09:25 | CT REPORT ---
HISTORY: Headache COMPARISON: Head CT dated 06/06/2017 TECHNIQUE: Axial non-contrast images obtained from skull vertex through foramen magnum. Dose reduction technique was utilized. FINDINGS: No focal mass, intracranial hemorrhage, or acute infarction. The ventricles and sulci are stable in c onfiguration. Orbits, paranasal sinuses, and mastoid air cells are clear. Bony calvarium intact. IMPRESSION: No acute intracranial process. Final Electronic Signature: This report was electronically signed by Kristian Lu MD on 06/11/2017 9: 22 AM. sarina /
--- NOTE | 2017-06-11 10:20 | ER PHYSICIAN DOCUMENTATION ---
Physician Documentation [facility] ([place], [place]) Name:Bob Arciniega Age:67 yrs Sex:Female :1950 Arrival Date:06/11/2017 Time:08:43 Bed1 Private MD:Alyssa Seals ED, Chris Disposition: 06/11 10:20 Chart complete. cd Disposition: 06/11/17 09:37 Discharged to Home/Self Care. Impression: Cephalgia - :resolved. - Condition is Good. - Discharge Instructions: HEADACHE, Unspecified. - Medical Reconciliation form form. - Follow up: Alyssa Seals MD; When: 7 - 10 days; Reason: Recheck today's complaints, Continuance of care. - Problem is new. - Symptoms are resolved. - Notes: Drink 2 - 3 quarts of water every day. Take Tylenol 650mg by mouth every6 hours for pain. OR Take Vicodin one tablet by mouth every 6 hours for severe pain. Follow up with Dr. Juarez on Tuesday HPI: 09:00 This 67 yrs old Female presents to ER via Private Vehicle with complaints of cd Headache. 09:00 The patient complains of pain to the top of head and left jew. The patient describes cd the headache as aching, intermittent. Onset: The symptoms/episode began/occurred acutely, last night, Patient reports waking up with a headache and very thirsty. She would drink 16 oz of water, go back to sleep, then it would require. It has recurred several times. She was recently started on Pradaxa for recently diagnosed PE's. She reports a Hx of Migraine headaches, but these headaches are much different. She currently has NO Headache, Neck pain, fever, chills, nausea or vomiting. . Associated signs and symptoms: Pertinent negatives: altered mental status, fever, nausea, neck stiffness, paresthesias, sinus congestion, sinus tenderness, vision changes, vision loss, vomiting. Severity of symptoms: At its worst the pain was moderate, in the emergency department the pain has resolved. Headache History: The patient has had previous headaches and this one is different than previous episodes. Risk factors for subarachnoid hemhorrage: no risk factors present. Historical: - Allergies: Sulfa (Sulfonamide Antibiotics); Diprivan; Soy protein sensitivity; Aleve; - Home Meds: 1. Protonix 40 mg oral TbEC once daily 2. Topamax 15 mg oral cpSP Unknown for Migraine Prevention - PMHx: Pulmonary Embolism (June 05, 2017); Migraines; - PSHx: Unable to obtain; - Tetanus: < 10 years. - Ebola Screening: : Patient negative for fever greater than or equal to 101.5 degrees Fahrenheit, and additional compatible Ebola Virus Disease symptoms. Patient denies exposure to infectious person. Patient denies travel to an Ebola-affected area in the 21 days before illness onset. No symptoms or risks identified at this time. . - Immunization history: Flu Vaccine unknown. - Social history: Smoking status: Patient states was never smoker of tobacco. ROS: 10:20 Eyes: Negative for injury, pain, redness, discharge, blurry vision and loss of vision. cd ENT: Negative for injury, pain, epistaxis and discharge. Neck: Negative for injury, pain, stiffness and swelling. Cardiovascular: Negative for chest pain, palpitations, edema and pleuritic pain. Respiratory: Negative for shortness of breath, dyspnea on exertion, cough, sputum production, wheezing, hemoptysis and pleuritic chest pain. Abdomen/GI: Negative for abdominal pain, nausea, vomiting, diarrhea, constipation, distension, melena, hematochezia and hematemesis. Back: Negative for injury, pain or muscle spasms. MS/Extremity: Negative for injury, deformity, edema, calf tenderness, pain or coldness. 10:20 Skin: Negative for injury, rash, itching and discoloration. cd 10:20 Constitutional: Negative for chills, fever, poor PO intake. 10:20 Neuro: Positive for headache, Negative for altered mental status, dizziness, loss of consciousness, numbness, syncope, near syncope, visual changes, weakness. 10:20 All other systems are negative. Exam: 10:20 Head/Face: Normocephalic, atraumatic. cd ENT: Nares patent. No nasal discharge, no septal abnormalities noted. Tympanic membranes are normal and external auditory canals are clear. Oropharynx with no redness, swelling, or masses, exudates, or evidence of obstruction, uvula midline. Mucous membranes moist. Neck: Trachea midline, no thyromegaly or masses palpated, and no cervical lymphadenopathy. Supple, full range of motion without nuchal rigidity, or vertebral point tenderness. No Meningismus. Cardiovascular: Regular rate and rhythm with a normal S1 and S2. No gallops, murmurs, or rubs. Normal PMI, no JVD. No pulse deficits. Respiratory: Lungs have equal breath sounds bilaterally, clear to auscultation and percussion. No rales, rhonchi or wheezes noted. No increased work of breathing, no retractions or nasal flaring. Abdomen/GI: Soft, non-tender, with normal bowel sounds. No distension or tympany. No guarding or rebound. No evidence of tenderness throughout. Back: No spinal tenderness. No costovertebral tenderness. Full range of motion. Skin: Warm, dry with normal turgor. Normal color with no rashes, no lesions, and no evidence of cellulitis. 10:20 MS/ Extremity: Pulses equal, no cyanosis. Neurovascular intact. Full, normal range of motion. 10:20 Constitutional: The patient appears alert, awake, non-diaphoretic, non-toxic, well developed, well hydrated, well nourished, anxious. 10:20 Head/face: Sinus tenderness, is not appreciated, No Temporal Region tenderness on palpation. No TMJ tenderness to palpation. 10:20 Eyes: Pupils: equal, round, and reactive to light and accomodation, Extraocular movements: intact throughout. 10:20 Neuro: Orientation: is normal, to person, place & time. Mentation: is normal, Memory: is normal, Cranial nerves: CN II- XII are normal as tested, Cerebellar function: is grossly normal, Motor: is normal, Sensation: is normal, Gait: is steady. Vital Signs: 08:50 BP 113 / 71; Pulse 82; Resp 16; Pulse Ox 96% on R/A; Weight 44 kg (R); Height 5 ft. tg (152.40 cm) (R); Pain 0/10; 08:50 Body Mass Index 18.94 (44.00 kg, 152.40 cm) tg Agus Coma Score: 09:35 Eye Response: spontaneous(4). Verbal Response: oriented(5). Motor Response: obeys cd commands(6). Total: 15. 10:20 Eye Response: spontaneous(4). Verbal Response: oriented(5). Motor Response: obeys cd commands(6). Total: 15. MDM: 09:10 Data interpreted: Pulse oximetry: on room air is 96 %. Interpretation: normal. cd 09:15 Differential diagnosis: epidural hematoma, intracerebral hemorrhage, subarachnoid cd bleed, subdural hematoma, temporal arteritis, tension headache, vasomotor headache. 09:33 Patient medically screened. cd 09:35 Neurological re-evaluation: normal neurological exam including cranial nerves, cd orientation, mentation, motor and sensory exam, cerebellar testing, GCS normal, and normal gait. 09:40 Counseling: I had a detailed discussion with the patient and/or guardian regarding: the cd historical points, exam findings, and any diagnostic results supporting the discharge/admit diagnosis, radiology results, the need for outpatient follow up, for a recheck, with the patient's primary care provider, to return to the emergency department if symptoms worsen or persist or if there are any questions or concerns that arise at home. 06/11 10:31 Order name: C-REACTIVE PROTEIN; Complete Time: 12:30 EDMS 06/11 12:29 Interpretation: Normal. 06/11 10:47 Order name: ERYTHROCYTE SEDIMENTATION RATE; Complete Time: 12:30 EDMS 06/11 12:29 Interpretation: Normal. cd 06/11 09:27 Order name: CAT SCAN; HEAD W/O CON [id number]; Complete Time: 12:30 EDMS 06/11 12:41 Interpretation: Normal: No ICH or CVA. cd Dispensed Medications: No medications were administered Signatures: Cesar Haines, RN RN tg Kian Wells MD MD
--- NOTE | 2017-06-11 10:20 | ER NURSING DOCUMENTATION ---
Nurse's Notes [facility] Name:Bob Arciniega Age:67 yrs Sex:Female :1950 Arrival Date:06/11/2017 Time:08:43 Bed1 Private MD:Alyssa Seals Diagnosis:Cephalgia-:resolved Presentation: 06/11 08:45 Presenting complaint: Patient states: Headache, recently began blood thinners (Pradaxa) tg for PE's. Recent hospitalization. Transition of care: patient was not received from another setting of care. 08:45 Acuity: PAT 2 tg 08:45 Method Of Arrival: Private Vehicle tg 08:53 Notified ED Physician of patient's arrival and CC Dr. Wells notified. tg Triage Assessment: 10:13 Headache History: The patient has had previous headaches and this one is different than tg previous episodes. General: Appears in no apparent distress, Behavior is cooperative, pleasant. Pain: Denies pain. Neuro: Level of Consciousness is awake, alert, Moves all extremities. Full function Gait is steady, Speech is normal, Facial symmetry appears normal, Pupils are PERRLA. Cardiovascular: Capillary refill < 3 seconds. Respiratory: Respiratory effort is even, unlabored. Derm: Skin is pink, warm & dry. Historical: - Allergies: Sulfa (Sulfonamide Antibiotics); Diprivan; Soy protein sensitivity; Aleve; - Home Meds: 1. Protonix 40 mg oral TbEC once daily 2. Topamax 15 mg oral cpSP Unknown for Migraine Prevention - PMHx: Pulmonary Embolism (June 05, 2017); Migraines; - PSHx: Unable to obtain; - Tetanus: < 10 years. - Ebola Screening: : Patient negative for fever greater than or equal to 101.5 degrees Fahrenheit, and additional compatible Ebola Virus Disease symptoms. Patient denies exposure to infectious person. Patient denies travel to an Ebola-affected area in the 21 days before illness onset. No symptoms or risks identified at this time. . - Immunization history: Flu Vaccine unknown. - Social history: Smoking status: Patient states was never smoker of tobacco. Screenin:18 Infectious Disease Risk Unable to Obtain. Abuse screen: Denies threats or abuse. Denies tg injuries from another. Nutritional screening: No deficits noted. Vital Signs: 08:50 BP 113 / 71; Pulse 82; Resp 16; Pulse Ox 96% on R/A; Weight 44 kg (R); Height 5 ft. tg (152.40 cm) (R); Pain 0/10; 08:50 Body Mass Index 18.94 (44.00 kg, 152.40 cm) tg [place] Coma Score: 09:35 Eye Response: spontaneous(4). Verbal Response: oriented(5). Motor Response: obeys cd commands(6). Total: 15. 10:20 Eye Response: spontaneous(4). Verbal Response: oriented(5). Motor Response: obeys cd commands(6). Total: 15. ED Course: 08:44 Patient arrived in ED. arc 08:45 Alyssa Seals MD is Private Physician. arc 08:45 Cesar Haines RN is Primary Nurse. tg 08:46 Triage completed. tg 09:[address] pm1 09:15 Patient moved back from [address]. pm1 09:33 Kian Wells MD is Attending Physician. cd 09:37 Alyssa Seals MD is Referral Physician. cd 10:18 Arm band placed on. tg 10:19 Valuables Remains with patient. tg Administered Medications: No medications were administered Outcome: 09:37 Discharge ordered by MD. cd 10:18 Discharged to home ambulatory. tg 10:18 Condition: stable 10:18 Discharge Assessment: Patient awake, alert and oriented x 3. No cognitive and/or functional deficits noted. Patient verbalized understanding of disposition instructions. 10:18 Instructed on discharge instructions, follow up and referral plans. 10:20 Patient left the ED. tg 06/12 10:17 Discharge F/U Call: Unable to reach: left voicemail: lc Signatures: Cesar Haines, RN RN Rylie Holm RN RN Kian Butts MD MD cd Alberta Roach pm1 Chew, Keely, Reg Reg arc
[2017-06-11 10:30] LABS: C-REACTIVE PROTEIN 9.4 mg/L (<10.0)
== END 2017-06-11 10:20 | disposition home or self-care (01) ==
LOC: ER 08:43
DX: R51 Headache (principal); Z86.711 Personal history of pulmonary embolism; Z79.01 Long term (current) use of anticoagulants; Z79.899 Other long term (current) drug therapy
CPT/HCPCS: 36415; 70450; 85651; 86140; 99283